=== PATIENT | male | born 1950 | race Hispanic/Latino ===

== ENCOUNTER 2023-10-26 13:29 | Outpatient (CLI) | payer OTHER ==
[~2023-10-26 13:29] MED LIST: Magnevist 469MG/ML 20 ML VIAL ONE
== END 2023-10-26 13:30 | disposition home or self-care (01) ==
LOC: CSHMRI 13:29
PROVIDERS: ATTEND Radiology Radiation Oncology
DX: C61 Malignant neoplasm of prostate (principal); M89.9 Disorder of bone, unspecified
CPT/HCPCS: 72197; 82565; A9579